=== PATIENT | female | born 1965 | race Caucasian/White ===

== ENCOUNTER 2023-06-11 06:28 | Outpatient (CLI) | payer BC, SELFPAY ==
--- NOTE | 2023-05-03 06:46 | PM.ANHP ---
PFSH PFS Medical History (Updated 04/23/23 @ 12:06 by Rhonda Garcia APRN, DANITA) Dense breast tissue ?R92.2 - Inconclusive mammogram (ICD-10) Surgical History (Updated 04/23/23 @ 12:06 by Rhonda Garcia APRN, BUNDLE [employer]ER) Status post laparoscopic cholecystectomy ?Z90.49 - Acquired absence of other specified parts of digestive tract (ICD-10) History of third molar tooth extraction ?K08.409 - Partial loss of teeth, unspecified cause, unspecified class (ICD-10) History of salpingo-oophorectomy ?Z90.79 - Acquired absence of other genital organ(s) (ICD-10) ?Z90.721 - Acquired absence of ovaries, unilateral (ICD-10) History of hysterectomy ?Z90.710 - Acquired absence of both cervix and uterus (ICD-10) History of cystoscopy ?Z98.890 - Other specified postprocedural states (ICD-10) Family History (Updated 04/23/23 @ 12:09 by Rhonda Garcia APRN, DANITA) Father Stroke Brother Colon cancer Unknown Schizophrenia Sister Schizophrenia Brother Schizophrenia Mother Osteoporosis Social History (Updated 04/23/23 @ 15:26 by Nayeli Goetz ~ [facility], [facility]) What is your current living situation?: I presently have a place to live Problems where you live: no known problems In the past 12 months, utilities in danger of being shut off: no In the past 12 mos, have been you worried that your food would run out before you had money to buy more?: never true In the past 12 mos, the food you bought just didn't last and you didn't have money to buy more?: never true Smoking Status: Never smoker How often does anyone, including family, friends and others, physically hurt you: never How often does anyone, including family, friends and others, insult or talk down to you: rarely How often does anyone, including family, friends and others, threaten you with harm: never How often does anyone, including family, friends and others, scream or curse at you: sometimes Little interest or pleasure in doing things: not at all Feeling down, depressed, or hopeless: several days Meds Home Medications and Allergies Allergies Allergy/AdvReac Type Severity Reaction Status Date / Time No Known Allergies Allergy Verified 04/23/23 11:28
--- NOTE | 2023-06-11 07:09 | W.ANESCHARGE ---
Anesthesia Charges Start Date/Time Anesthesia Start Date: 06/11/23 Anesthesia Start Time: 07:15 Stop Date/Time Anesthesia Stop Date: 06/11/23 Anesthesia Stop Time: 07:35
== END 2023-06-11 06:29 | disposition home or self-care (01) ==
LOC: OP CLINIC 06:29
PROVIDERS: PCP Nurse Practitioner Family; Visit Provider Internal Medicine
DX: Z12.11 Encounter for screening for malignant neoplasm of colon (principal); Z80.0 Family history of malignant neoplasm of digestive organs
CPT/HCPCS: 00812; 45378; J2704

== ENCOUNTER 2023-07-18 07:52 | Outpatient (CLI) | payer BC, SELFPAY ==
--- NOTE | 2023-07-18 08:15 | CRLHL7_ITS ---
For Patients: As a result of the Cures Act, medical imaging exams and procedure reports are released immediately into your electronic medical record. You may view this report before your referring provider. If you have questions, please contact your health care provider. BILATERAL SCREENING MAMMOGRAM WITH COMPUTER-AIDED DETECTION AND TOMOSYNTHESIS TECHNIQUE: CC and MLO views were obtained. These mammographic images have been obtained using full-field digital technique. These mammographic images were interpreted with the benefit of computer-aided detection. Breast Tomosynthesis was used in this interpretation. COMPARISON FILM: No priors available. FINDINGS: There are scattered areas of fibroglandular density IMPRESSION: There is no radiographic evidence for malignancy. ASSESSMENT: BI-RADS Category 1: Negative RECOMMENDATION: Routine screening mammogram in 1 year. A lay language report of this examination will be provided to the patient. WILMA SUAREZ M.D. Diagnostic/Nuclear Medicine Radiologist [email or web address] FARHEEN:elias Transcribed: 2:24 p.mNicola griffin/Dictated by: Wilma Suarez MD @ 07/30/2023 10:32:00 AM (Electronically Signed)
== END 2023-07-18 07:53 | disposition home or self-care (01) ==
PROVIDERS: PCP Nurse Practitioner Family; Visit Provider Nurse Practitioner Family
DX: Z12.31 Encounter for screening mammogram for malignant neoplasm of breast (principal)
CPT/HCPCS: 77063; 77067

== ENCOUNTER 2025-03-02 16:49 | Outpatient (CLI) | payer BC, SELFPAY ==
--- NOTE | 2025-03-02 17:00 | CRLHL7_ITS ---
For Patients: As a result of the Century Cures Act, medical imaging exams and procedure reports are released immediately into your electronic medical record. You may view this report before your referring provider. If you have questions, please contact your health care provider. INDICATION: BILATERAL SCREENING MAMMOGRAM, ASYMPTOMATIC 59 Y/O FEMALE COMPARISON: 08/07/2023 TECHNIQUE: Digital mammogram in CC and MLO projections including computer-aided detection (CAD) and tomosynthesis. BREAST COMPOSITION: There are scattered areas of fibroglandular density. FINDINGS: No suspicious findings. ASSESSMENT: BI-RADS 1 Negative RECOMMENDATION: Annual screening mammogram. A lay language report of this examination will be provided to the patient. Dictated by: Bay Segundo MD @ 03/03/2025 12:44:53 (Electronically Signed)
== END 2025-03-02 16:50 | disposition home or self-care (01) ==
LOC: MAMMO 16:50
PROVIDERS: PCP Nurse Practitioner Family; Visit Provider Physician Assistant
DX: Z12.31 Encounter for screening mammogram for malignant neoplasm of breast (principal)
CPT/HCPCS: 77063; 77067